=== PATIENT | male | born 1950 | race Caucasian/White ===

== ENCOUNTER 2019-04-26 21:37 | Emergency (ER) | payer MEDICARE ==
[~2019-04-26] VITALS: Ht 175.3 cm; Wt 100.0 kg
[2019-04-26] MEDS ORDERED: LOSA100T50 PO (21:47)
[2019-04-26] MEDS ORDERED: WELLTAB40 PO (21:47)
[2019-04-26] MEDS ORDERED: ATIV1TAB10 PO (21:47)
[2019-04-26] MEDS ORDERED: BAYE325T13 PO (21:47)
[2019-04-26] MEDS ORDERED: HYDR12.55 PO (21:47)
[2019-04-26] MEDS ORDERED: OMEP-218 PO (21:47)
[2019-04-26] MEDS ORDERED: FLOM0.4C39 PO (21:47)
[2019-04-26] MEDS ORDERED: VENL150C43 PO (21:47)
[2019-04-26] MEDS ORDERED: ACETAMINOPHEN 325 MG TAB PO ONE (23:00)
--- NOTE | 2019-04-26 23:23 | REPVR ---
PROCEDURE INFORMATION: Exam: CT Head Without Contrast Exam date and time: 04/26/2019 10:56 PM Clinical history: 68 years old, male; Injury or trauma; Fall; Initial encounter; Concussion / head injury; Consciousness not specified; Additional info: Fall onto face, pain behind eyes worsening TECHNIQUE: Imaging protocol: Computed tomography of the head without contrast. Radiation optimization: All CT scans at this facility use at least one of these dose optimization techniques: automated exposure control; mA and/or kV adjustment per patient size (includes targeted exams where dose is matched to clinical indication); or iterative reconstruction. COMPARISON: No relevant prior studies available. FINDINGS: Brain: Diffuse mild cerebral age related volume loss. Mild patchy low attenuation in the white matter compatible with mild chronic small vessel ischemic disease. No midline shift, mass, fluid collection, or evidence of hemorrhage. Falx calcifications. Ventricles: Ventricular enlargement proportional to volume loss. Bones/joints: Unremarkable. No acute fracture. Sinuses: Visualized sinuses are unremarkable. No fluid levels. Mastoid air cells: Visualized mastoid air cells are well aerated. Soft tissues: Unremarkable. IMPRESSION: Mild involutional changes, no acute intracranial abnormality. Electronically signed by: Nadir Mckeon On 04/26/2019 23:22:49 PM
--- NOTE | 2019-04-26 23:24 | REPVR ---
PROCEDURE INFORMATION: Exam: CT Maxillofacial Without Contrast, Sinus Exam date and time: 04/26/2019 10:56 PM Clinical history: 68 years old, male; Injury or trauma; Fall; Initial encounter; Swelling; Nose; Additional info: Fall onto face, pain behind eyes worsening TECHNIQUE: Imaging protocol: CT Maxillofacial without contrast. Focus on the sinuses. Radiation optimization: All CT scans at this facility use at least one of these dose optimization techniques: automated exposure control; mA and/or kV adjustment per patient size (includes targeted exams where dose is matched to clinical indication); or iterative reconstruction. COMPARISON: No relevant prior studies available. FINDINGS: Frontal sinuses: Normal. No air-fluid levels. Ethmoid air cells: Normal. No air-fluid levels. Sphenoid sinuses: Normal. No air-fluid levels. Maxillary sinuses: Mild scattered paranasal sinus mucosal thickening and secretions. Orbits: Orbits are normal. Globes are unremarkable. Nasal cavity/Septum: Minimal leftward nasal septal deviation. Soft tissues: Unremarkable. Bones/joints: Unremarkable. IMPRESSION: No acute osseous abnormality. Electronically signed by: Nadir Mckeon On 04/26/2019 23:24:02 PM
[2019-04-27] MEDS ORDERED: IBUPROFEN 600 MG TAB PO ONE (00:30)
[2019-04-27 00:45] VITALS: BP 138/84
== END 2019-04-27 00:48 | disposition home or self-care (01) ==
LOC: M ED 21:37
DX: S00.31XA Abrasion of nose, initial encounter (principal); S00.81XA Abrasion of other part of head, initial encounter; W01.0XXA Fall on same level from slipping, tripping and stumbling without subsequent striking against object, initial encounter; Y92.009 Unspecified place in unspecified non-institutional (private) residence as the place of occurrence of the external cause; Y93.E5 Activity, floor mopping and cleaning; G31.9 Degenerative disease of nervous system, unspecified; I10 Essential (primary) hypertension; K21.9 Gastro-esophageal reflux disease without esophagitis; Z79.82 Long term (current) use of aspirin; Z79.899 Other long term (current) drug therapy

== ENCOUNTER → 2022-11-10 | Outpatient (CLI) | payer MEDICARE ==
[~2022-11-10] MED LIST: ATIV1TAB10 PO; BAYE325T13 PO; FLOM0.4C39 PO; HYDR12.55 PO; LOSA100T46 PO; OMEP-173 PO; VENL150C43 PO; WELLTAB40 PO
== END ==
LOC: M RAD 08:00
DX: R16.1 Splenomegaly, not elsewhere classified (principal); Q61.02 Congenital multiple renal cysts; D75.839 Thrombocytosis, unspecified; D75.81 Myelofibrosis; R63.0 Anorexia; R68.81 Early satiety; R53.83 Other fatigue